=== PATIENT | female | born 1950 | race Asian ===

== ENCOUNTER 2018-11-27 17:42 | Inpatient (IN) | payer MEDICARE, MEDICAID ==
[~2018-11-27] VITALS: Ht 154.9 cm; Wt 58.5 kg
[2018-11-27 17:56] VITALS: Ht 154.9 cm; Wt 58.5 kg
[2018-11-27 18:33] LABS: BASOPHIL % 1.4 % (0-2); PLATELET COUNT 255 x10^3mcL (130-400); RED CELL DISTRIBUTION WIDTH 13.2 % (11.5-14.5)
[2018-11-27 18:53] LABS: CALCIUM 8.8 mg/dL (8.5-10.1); CARBON DIOXIDE 24.3 mmol/L (21-32); CHLORIDE SERUM 100 mmol/L (98-107); CREATININE SERUM 0.5 mg/dL (0.6-1.0); GFR1 > 60 mL/min; GLUCOSE SERUM 114 mg/dL (74-106); POTASSIUM SERUM 3.8 mmol/L (3.5-5.1); SODIUM SERUM 134 mmol/L (136-145)
[2018-11-27 18:57] LABS: ALBUMIN 3.4 g/dL (3.4-5.0); ALKALINE PHOSPHATASE 56 U/L (46-116); ALT/SGPT 20 U/L (14-59); AMYLASE 58 U/L (25-115); AST/SGOT 17 U/L (15-37); LIPASE 157 IU/L (73-393)
[2018-11-27 20:56] LABS: MAGNESIUM 2.2 mg/dL (1.8-2.4); PHOSPHOROUS 2.9 mg/dL (2.5-4.9)
[2018-11-27 22:18] VITALS: BP 102/56
[2018-11-28 02:40] LABS: microscopic required? NO
[2018-11-28 02:57] LABS: UA SPECIFIC GRAVITY <=1.005 (1.005-1.035); urine erythrocyte NEGATIVE (NEGATIVE)
[2018-11-28 05:54] VITALS: BP 103/55
[2018-11-28 06:52] LABS: CALCIUM 7.8 mg/dL (8.5-10.1); CARBON DIOXIDE 22.9 mmol/L (21-32); CHLORIDE SERUM 106 mmol/L (98-107); CREATININE SERUM 0.5 mg/dL (0.6-1.0); GFR1 > 60 mL/min; GLUCOSE SERUM 91 mg/dL (74-106); PHOSPHOROUS 3.1 mg/dL (2.5-4.9); POTASSIUM SERUM 3.4 mmol/L (3.5-5.1); SODIUM SERUM 130 mmol/L (136-145)
[2018-11-28 08:11] LABS: BASOPHIL % 0.6 % (0-2); PLATELET COUNT 197 x10^3mcL (130-400)
[2018-11-28 09:35] VITALS: BP 111/60
[2018-11-28 16:04] LABS: BASOPHIL % 0.6 % (0-2); PLATELET COUNT 223 x10^3mcL (130-400); RED CELL DISTRIBUTION WIDTH 12.8 % (11.5-14.5)
[2018-11-28 16:10] VITALS: BP 111/62
[2018-11-28 16:49] VITALS: BP 106/54
[2018-11-28 20:00] VITALS: BP 125/70
[2018-11-28 20:55] VITALS: BP 112/68
[2018-11-29 05:34] VITALS: BP 101/55
[2018-11-29 06:14] LABS: BASOPHIL % 0.5 % (0-2); PLATELET COUNT 220 x10^3mcL (130-400); RED CELL DISTRIBUTION WIDTH 12.9 % (11.5-14.5)
[2018-11-29 06:36] LABS: CALCIUM 8.6 mg/dL (8.5-10.1); CARBON DIOXIDE 23.7 mmol/L (21-32); CHLORIDE SERUM 110 mmol/L (98-107); CREATININE SERUM 0.4 mg/dL (0.6-1.0); GFR1 > 60 mL/min; GLUCOSE SERUM 96 mg/dL (74-106); MAGNESIUM 2.2 mg/dL (1.8-2.4); PHOSPHOROUS 3.4 mg/dL (2.5-4.9); POTASSIUM SERUM 4.6 mmol/L (3.5-5.1); SODIUM SERUM 143 mmol/L (136-145)
[2018-11-29 09:40] VITALS: BP 100/51
[2018-11-29 16:07] VITALS: BP 115/70
[2018-11-29] MEDS ORDERED: COLACE100 MG PO (16:30)
[2018-11-29 16:35] VITALS: BP 115/70
== END 2018-11-29 17:25 | disposition home or self-care (01) | DRG 989 ==
LOC: ED 17:42 → MU 20:27
PROVIDERS: Emergency Medicine; General Practice; Surgery; ADMIT Internal Medicine
PROC: 06LY0CC Occlusion of Hemorrhoidal Plexus with Extraluminal Device, Open Approach (ICD-10-PCS; principal; 2018-11-28 18:00)
DX: K91.840 Postprocedural hemorrhage of a digestive system organ or structure following a digestive system procedure (principal); R39.14 Feeling of incomplete bladder emptying; Z68.24 Body mass index [BMI] 24.0-24.9, adult; Z85.72 Personal history of non-Hodgkin lymphomas; Y83.8 Other surgical procedures as the cause of abnormal reaction of the patient, or of later complication, without mention of misadventure at the time of the procedure; Y92.009 Unspecified place in unspecified non-institutional (private) residence as the place of occurrence of the external cause
CPT/HCPCS: J0690; J2250; J2405; J3010; J3490; J7030; J7120; Q0092

== ENCOUNTER 2018-11-30 18:18 | Inpatient (IN) | payer MEDICAID, MEDICARE ==
[~2018-11-30] VITALS: Ht 154.9 cm; Wt 53.8 kg
[~2018-11-30 18:18] MED LIST: COLACE100 MG PO
--- NOTE | 2018-11-30 18:34 | NUR ---
GI BLEEDING STARTE THIS AM. PT HAD RECENT HEMM REMOVAL AND THEN MORE RECENT CAUTERIZATION OF BLEEDING ON TUESDAY WITH ADMISSION. MODERATE AMOUNT OF BRIGHT RED BLOOD PRESENT. PT HAS 10/10 RECTAL PAIN. PT ARRIVES ALERT AND ORIENTED WITH VSS BUT PALE IN COLOR AND WEAK. CONNECTED TO LICENSED EMBALMER SUPERVISOR AND AWAITING MD WARNER
--- NOTE | 2018-11-30 18:45 | NUR ---
DR KAPADIA AT BEDSIDE FOR EVAL
--- NOTE | 2018-11-30 19:02 | NUR ---
CALLED PHARMACY AND THEY WILL MIX TXA INFUSION AND BRING OVER TO ED
--- NOTE | 2018-11-30 19:15 | NUR ---
PT GIVEN FENTENYL WITH VSS. ONCE MEDICATION GIVEN PT BECAME GROGGY AND BP RECHECKED AND 106/66. PT AROUSABLE TO LIGHT SHAKING. TXA BROUGHT BY PHARMACY STARTED
--- NOTE | 2018-11-30 19:17 | NUR ---
REPORT GIVEN TO SHEEBA RAGLAND
[2018-11-30 19:18] LABS: BASOPHIL % 1.2 % (0-2); PLATELET COUNT 259 x10^3mcL (130-400); RED CELL DISTRIBUTION WIDTH 13.3 % (11.5-14.5)
[2018-11-30 19:22] LABS: CALCIUM 8.4 mg/dL (8.5-10.1); CARBON DIOXIDE 28.5 mmol/L (21-32); CHLORIDE SERUM 107 mmol/L (98-107); CREATININE SERUM 0.6 mg/dL (0.6-1.0); GFR1 > 60 mL/min; GLUCOSE SERUM 133 mg/dL (74-106); POTASSIUM SERUM 3.9 mmol/L (3.5-5.1); SODIUM SERUM 141 mmol/L (136-145)
[2018-11-30 19:26] LABS: ALKALINE PHOSPHATASE 50 U/L (46-116); ALT/SGPT 15 U/L (14-59); AST/SGOT 12 U/L (15-37); BILIRUBIN TOTAL 0.13 mg/dL (0.20-1.00)
[2018-11-30 19:27] LABS: ALBUMIN 2.8 g/dL (3.4-5.0); TOTAL PROTEIN, SERUM 5.9 g/dL (6.4-8.2)
--- NOTE | 2018-11-30 19:44 | NUR ---
PATIENT MEDICATED WITH ZOFRAN, FAMILY COMPLAINT PATIENT HAS HAUSEA.
--- NOTE | 2018-11-30 20:42 | NUR ---
FAMILY REPORTS BLEEDING. NO ACTIV BLEEDING SEEN. PAD WAS BLOODY WITH CLOTS AND LINEN WAS SOAKED WITH PINK FLUID. LINEN CHANGED. PATIENT REQUEST CATH, REPORTS SHE HAS RETENTION WITH LYING DOWN. SAME INSERTED PER MD ORDER. 200 ML URINE DRAINE. CLEAR URINE.
--- NOTE | 2018-11-30 20:51 | NUR ---
REPORT WAS GIVEN TO CEE. PATIENT TRANSPORTED TO ROOM 207B.
[2018-11-30 20:56] LABS: BASOPHIL % 0.7 % (0-2); RED CELL DISTRIBUTION WIDTH 13.2 % (11.5-14.5)
--- NOTE | 2018-11-30 21:00 | NUR ---
RECEIVED PT FROM ED VIA GUERNEY, CAME IN DUE TO RECTAL BLEED 1 HOUR AFTER BM. AAOX4. DENIES HEADACHE/DIZZINESS. ABLE TO FOLLOW COMMANDS. NO SOB NOTED, LUNG SOUNDS CTA. ON 2LPM/NC, O2 SAT=99%. DENIES CHEST PAIN/PRESSURE, SR ON THE MONITOR. PALE. DENIES ABDOMINAL PAIN/NAUSEA/VOMITING. ABDOMEN IS SOFT. NO ACTIVE RECTAL BLEED NOTED AT THIS TIME BUT NOTED BLOOD WITHOUT ANY CLOTS ON HER KERLINE-PAD. W/ MACEDONIAN 16 MATHIS CATHETER DRAINING W/ YELLOW COLORED URINE. SIDE RAILS UPX2. CALL LIGHT ON REACH. FAMILY AT BEDSIDE. ENDORSED TO PRIMARY NURSE CEE AT BEDSIDE FOR CONTINUITY OF CARE
[2018-11-30 21:14] VITALS: BP 99/63
[2018-11-30 21:23] VITALS: Ht 154.9 cm; Wt 53.8 kg
[2018-11-30 21:38] LABS: PLATELET COUNT 173 x10^3mcL (130-400)
[2018-12-01] VITALS (7 sets, daily range): BP systolic 92–110; BP diastolic 51–63
[2018-12-01 01:41] LABS: microscopic required? NO
[2018-12-01 01:58] LABS: urine erythrocyte NEGATIVE (NEGATIVE)
[2018-12-01 02:06] LABS: BASOPHIL % 0.9 % (0-2); PLATELET COUNT 223 x10^3mcL (130-400); RED CELL DISTRIBUTION WIDTH 13.5 % (11.5-14.5)
--- NOTE | 2018-12-01 02:19 | NUR ---
DR FERNANDES PAGED IN REGARDS OF H&H 7.0/20
--- NOTE | 2018-12-01 02:30 | NUR ---
ROUNDS MADE. PT RESTING, BREATHING EVEN AND UNLABORED ON NC WITH NO SOB NOTED. NO SIGNS OF ACUTE DISTRESS NOTED. CALL BUTTON WITHIN REACH. SAFETY PRECAUTIONS IN PLACE. FAMILY MEMBER AT BEDSIDE. WILL CONTINUE TO MONITOR.
--- NOTE | 2018-12-01 03:55 | NUR ---
DR FERNANDES MADE AWARE OF H&H RESULTS, NO NEW ORDERS AT THIS TIME.
--- NOTE | 2018-12-01 05:21 | NUR ---
PT SLEPT MOST OF THE NIGHT WITH NO DISTRESS NOTED. PT RESTING, DENIES ANY PAIN. BREATHING EVEN AND UNLABORED ON NC 2L/MIN NO SOB NOTED. IV PATENT, SL WITH NO SIGNS OF INFILTRATION NOTED. NO SIGNS OF ACUTE DISTRESS. F/C IN PLACE DRAINING YELLOW URINE. CALL BUTTON WITHIN REACH. SAFETY PRECAUTIONS IN PLACE. FAMILY AT BEDSIDE. WILL CONTINUE TO MONITOR AND ENDORSE CARE TO DAY SHIFT RN.
[2018-12-01 07:17] LABS: CALCIUM 7.7 mg/dL (8.5-10.1); CARBON DIOXIDE 31.7 mmol/L (21-32); CHLORIDE SERUM 109 mmol/L (98-107); CREATININE SERUM 0.5 mg/dL (0.6-1.0); GFR1 > 60 mL/min; GLUCOSE SERUM 104 mg/dL (74-106); POTASSIUM SERUM 4.1 mmol/L (3.5-5.1); SODIUM SERUM 144 mmol/L (136-145)
[2018-12-01 07:20] LABS: BASOPHIL % 0.4 % (0-2); PLATELET COUNT 225 x10^3mcL (130-400); RED CELL DISTRIBUTION WIDTH 13.3 % (11.5-14.5)
--- NOTE | 2018-12-01 07:39 | NUR ---
PT AWAKE DENIES ANY PAIN. NO SIGNS OF DISTRESS NOTED. KERLINE PAD WITH DARK BLOOD NOTED. NC IN PLACE WITH NO SOB NOTED. IV PATENT, SL NO SIGNS OF INFILTRATION NOTED. CALL BUTTON WITHIN REACH. SAFETY PRECAUTIONS IN PLACE. SON AT BEDSIDE. ENDORSED CARE TO DAY SHIFT RN, ALL QUESTIONS ADDRESSED.
--- NOTE | 2018-12-01 08:00 | NUR ---
RECEIVED PATIENT ALERT/ORIENTED X4. GENERAL WEAKNESS. ANEMIC PALE. HANDS COLD. TELE#8; SR; HR = 78. NO RESP DISTRESS ON RA. O2 SAT 98%. ABD FLAT/SOFT. RECTAL BLEEDING ACTIVE. SMALL TO MODERATE DARK RED BLLOD. NOMIXED WITH STOOL. MATHIS CATHETER PATENT WITH YELLOWISH UOP. IV HL'D TO LFA WITH 19G NEEDLE. NPO FOR SURGERY AT 0930. DENIED PAIN. B/P = 92/54; [place] POSITION. SON AT BED SIDE. CALL LIGHT IN REACH.
--- NOTE | 2018-12-01 09:08 | NUR ---
DR. LYN CAME TO SEE PATIENT AND EXPLAINED PROCEDURE. SURGICAL CONSENT SIGNED. PATIENT WENT TO OR NOW.
--- NOTE | 2018-12-01 11:46 | NUR ---
RECEIVED PATIENT FROM OR RECOVERY ROOM. PATIENT DROWSY, AROUSABLE. V/S =97.4-79-16-102/55. O2 SAT 100% ON 2L VIA N/C. DENIED PAIN NOW. NO RECTAL BLEEDING SEEN. SKIN PALE. NPO FOR GI CONSULTATION PER ORDER. IVHL'D TO LFA. CALL LIGHT IN REACH.
--- NOTE | 2018-12-01 13:38 | NUR ---
DR. Keith BASS CAME TO SEE PATIENT. CONSENT OF EGD AND COLONOSCOPY SIGHED. PATIENT WENT TO GI LAB NOW.
--- NOTE | 2018-12-01 16:00 | NUR ---
RECEIVED PATEINT FROM GI LAB. V/S = 98.2-83-16-98/49, O2 SAT 100%ON 2L VIA N/C. DENIED PAIN. NO RECTAL BLEEDING NOW. CALL LIGHT IN REACH.
--- NOTE | 2018-12-01 16:25 | NUR ---
1ST UNIT BLOOD TRANSFUSION STARTED. NO ADVERSE REACTION NOW.
--- NOTE | 2018-12-01 19:45 | NUR ---
1 ST UNIT OF PRBC TRANSFUSION DONE. NO ADVERSED REACTION. V/S= 98.6-95-16-98/52; O2 SAT 96% ON 2L VIA N/C. RECTAL BLEEDING WAS SUBSIDING. ON CLEAR LIQUID DIET, TOLERATED. MATHIS UOP 850CC COLLECTED. ENDORSED CARE TO [facility] NURSE.
--- NOTE | 2018-12-01 20:40 | NUR ---
Awake and verbally responsive. No respiratory distress noted on room air. Denies pain. Denies n/v. 1 Unit prbc started. Will cont.to monitor. No active bleeding noted. Call light within reach.
[2018-12-02] VITALS (10 sets, daily range): BP systolic 107–137; BP diastolic 59–78
--- NOTE | 2018-12-02 03:37 | NUR ---
Afebrile. Had 1 unit prbc and 1 unit FFP. No adverse reaction noted. Denies pain. Denies n/v. No active bleeding noted. In no apparent distress. Family member at the bedside.
--- NOTE | 2018-12-02 07:10 | NUR ---
RECEIVED REPORT FROM JAVAD RAGLAND. PT RESTING COMFORTABLY IN BED WITH DAUGHTER AT BEDSIDE. IV TO LFA IS INFILTRATED. FLUIDS STOPPED. JAVAD TO ATTEMPT NEW INSERTION. TELE # [address]. PT DENIES CHEST PAIN. PT ON ROOM AIR. NO C/O SOB AND NO DISTRESS NOTED. ALL QUESTIONS AND CONCERNS ADDRESSED.
[2018-12-02 07:22] LABS: CALCIUM 8.4 mg/dL (8.5-10.1); CARBON DIOXIDE 28.9 mmol/L (21-32); CHLORIDE SERUM 108 mmol/L (98-107); CREATININE SERUM 0.6 mg/dL (0.6-1.0); GFR1 > 60 mL/min; GLUCOSE SERUM 106 mg/dL (74-106); MAGNESIUM 2.1 mg/dL (1.8-2.4); PLATELET COUNT 217 x10^3mcL (130-400); POTASSIUM SERUM 3.6 mmol/L (3.5-5.1); RED CELL DISTRIBUTION WIDTH 13.7 % (11.5-14.5); SODIUM SERUM 142 mmol/L (136-145)
--- NOTE | 2018-12-02 10:03 | NUR ---
NEW IV INSERTED TO LFA 20G. FLUIDS RESUMED. PO MEDICATIONS ADMINISTERED. CALLED PHARMACY FOR 0900 IV FERRLICIT. SPOKE WITH JOSHUA. MEDICATION TO BE DELIVERED.
--- NOTE | 2018-12-02 11:06 | NUR ---
SPOKE WITH DR HENRY TO REQUEST PRE TRANSFUSION TYLENOL AND BENADRYL FOR FFP INFUSION.
--- NOTE | 2018-12-02 12:25 | NUR ---
FFP INFUSION STARTED VERIFICATION BY MYSELF AND DAMIAN RAGLAND. VITALS TAKEN AND STABLE (SEE DOCUMENTATION) WILL REMAIN WITH PATIENT TO MONITOR.
--- NOTE | 2018-12-02 14:38 | NUR ---
FFP INFUSION COMPLETE. POST VITALS TAKEN (SEE DOCUMENTATION). PT RESTING COMFORTSLY IN BED. ALL NEEDS MET.
--- NOTE | 2018-12-02 17:39 | NUR ---
CALLED DR HENRY TO REQUEST MATHIS REMOVAL PER PATIENT REQUEST. NOTIFIED DR HENRY OF MANY LOOSE BMS WITH NO BLOOD NOTED. DR HENRY OK TO DC MATHIS AWAITING ORDERS.
--- NOTE | 2018-12-02 18:23 | NUR ---
IN TO SEE PATIENT AND DISCUSS BLADDER TRAINING BEFORE MATHIS REMOVAL. MATHIS EMPTIED OF 1350 CLEAR YELLOW URINE AND CLAMPED. PT TO NOTIFY WHEN BLADDER FEELS FULL AND SHE HAS THE URGE TO URINATE.
--- NOTE | 2018-12-02 18:32 | NUR ---
RECEIVED CALL FROM DR HUITRON FOR UPDATE ON PATIENT. INFORMED THAT PT HAD SEVERAL BM ALL LOOSE WITH NO BLOOD NOTED. DR HUITRON ORDERED REGULAR DIET TOMORROW AND TO CANCEL DULCOLAX AND MINERAL OIL. ORDERED TO KEEP AMITIZA AND LACTULOSE.
--- NOTE | 2018-12-02 18:50 | NUR ---
PT REPORTED FEELING URGE TO URINATE. MATHIS UNCLAMPED AND 200 ML CLEAR YELLOW URINE DRAINED INTO BAG. MATHIS RECLAMPED.
--- NOTE | 2018-12-02 19:34 | NUR ---
PT RESTING COMFORTABLY IN BED WITH FAMILY AT BEDSIDE. ALL NEEDS MET. MATHIS IN PLACE IS CLAMPED FOR BLADDER TRAINING. IV TO LFA IS PATENT AND INFUSING D5NS @ 80 ML/HR. NO REDNESS OR PAIN. TELE # [address] PT DENIES CHEST PAIN. PT ON ROOM AIR. NO C/O SOB AND NO DISTRESS NOTED. WILL ENDORSE TO DC MATHIS TO YAQUELIN GARIBAY.
--- NOTE | 2018-12-02 19:50 | NUR ---
RECEIVED REPORT FROM DAY SHIFT RN. PT RESTING IN BED. AA&O X4. NO SOB ON ROOM AIR. NO C/O PAIN. NO DISTRESS NOTED. IV TO LFA, INTACT. MATHIS CATHETER IN PLACE, CLAMPED FOR BLADDER TRAINING. SAFETY MEASURES IN PLACE. BED IN LOWEST POSITION. SIDE RAILS UP X2. INSTRUCTED PT TO USE THE CALL LIGHT FOR ASSISTANCE. CALL LIGHT WITHIN REACH. AT BEDSIDE.
--- NOTE | 2018-12-02 20:30 | NUR ---
PT REPORTED FEELING THE URGE TO URINATE. MATHIS UNCLAMPED. 200 ML YELLOW URINE OUT. PT REQUESTED TO HAVE THE MATHIS CATHETER REMOVED TOMORROW MORNING. PT STATES "SO SHE DOES NOT HAVE TO WORRY ABOUT GETTING UP OFTEN TONIGHT BECAUSE SHE WANTS TO GET SOME SLEEP". OK TO DC MATHIS IN THE MORNING PER DR POWELL.
[2018-12-03 05:49] VITALS: BP 112/66
[2018-12-03 06:39] LABS: BASOPHIL % 0.6 % (0-2); PLATELET COUNT 240 x10^3mcL (130-400); RED CELL DISTRIBUTION WIDTH 14.1 % (11.5-14.5)
--- NOTE | 2018-12-03 06:50 | NUR ---
PT SLEPT IN LONG INTERVALS THROUGHOUT SHIFT. NO SOB ON ROOM AIR. NO C/O PAIN. MATHIS CATHETER REMOVED. MATHIS CATHETER TIP INTACT. NO DISTRESS NOTED. NO ACTIVE RECTAL BLEEDING NOTED. SAFETY MEASURES MAINTAINED. ALL NEEDS ATTENDED TO. WILL ENDORSE CONTINUITY OF CARE TO ONCOMING RN. CALL LIGHT WITHIN REACH. SON AT BEDSIDE.
[2018-12-03 07:00] LABS: CALCIUM 8.9 mg/dL (8.5-10.1); CARBON DIOXIDE 26.5 mmol/L (21-32); CHLORIDE SERUM 107 mmol/L (98-107); CREATININE SERUM 0.5 mg/dL (0.6-1.0); GFR1 > 60 mL/min; GLUCOSE SERUM 95 mg/dL (74-106); PHOSPHOROUS 3.6 mg/dL (2.5-4.9); POTASSIUM SERUM 3.1 mmol/L (3.5-5.1); SODIUM SERUM 143 mmol/L (136-145)
--- NOTE | 2018-12-03 07:20 | NUR ---
RECEIVED PT IN BED. ASSESSED AND DOCUMENTED. DENIES ANY PAIN. STABLE. SAFTEY PRECAUTIONS ARE IN PLACE. WILL MONITOR.
--- NOTE | 2018-12-03 09:00 | NUR ---
CALLED AND ASKED ABOUT PT, AWARE ABOUT PT SOME LOOSE STOOL YESTERDAY AND 1 SMALL FORMED BM TODAY AM. HE SAID HOLD LACTULOSE AND AMITIZIA FOR AM DOSE. INFORMED AUDIO VISUAL COORDINATOR JANE SHE SAID HOLD AM DOSES BUT SHE CAN HAVE HER NIGHT DOSE.
[2018-12-03 09:30] VITALS: BP 103/62
--- NOTE | 2018-12-03 10:00 | NUR ---
PT SAID SHE HAS MILD LLQ PAIN,2/10. OFFERED PAIN MED BUT PT REFUSED AND SAID SHE JUST WANT TO TELL THE DOCTOR. INFORMED CORPORATE ASSOCIATE ATTORNEY GUSTAVO ABOUT THAT AND SHE WENT IN THE ROOM, SPOKE WITH PT AND ASSESSED PT. NO NEW ORDER RECEIVED THIS TIME.
--- NOTE | 2018-12-03 10:45 | NUR ---
PT RESTING IN BED COMFORTABLY. FAMILY AT BEDSIDE. STABLE. DENEIS ANY PAIN THIS TIME.
[2018-12-03 12:49] VITALS: BP 107/64
--- NOTE | 2018-12-03 14:00 | NUR ---
PT IS STABLE. DENIES ANY PAIN. FAMILY AT BEDSIDE.
[2018-12-03 17:35] VITALS: BP 112/65
--- NOTE | 2018-12-03 19:10 | NUR ---
PT RESTING IN BED COMFPRTABLY. DENIES PAIN. STABLE. GAVE REPORT TO SMALL BOAT ENGINEER NURSE.
--- NOTE | 2018-12-03 19:35 | NUR ---
RECEIVED PT RESTING IN BED, DAUGHTER AT BEDSIDE. AOX4, DENIES ELIZABETH/DIZZINESS. TELE #8, SR. DENIES CP. PULSES PALPABLE BIALT, DENIES NUMBNESS/TINGLING IN FEET. RESP EVEN AND UNLABORED ON RA, DENIES SOB. ABD SOFT, FLAT, REPORTS LLQ PAIN (INTERMITTENT, TOLERABLE AT THIS TIME). PT REPORTING LOOSE STOOL, PT ON LACTULOSE TO ENSURE PT HAS SOFT STOOLS W/O RISK OF STRAINING D/T S/P HEMORRHOIDECTOMY. PT DENIES ACTIVE BLEEDING AT THIS TIME. PT VOIDS W/O DYSURIA. PT AMBULATORY W/ SBA FOR SAFETY. SKIN INTACT. IV SITE TO LFA, D5NS @ 80ML/HR. NO REDNESS, SWELLING OR PAIN NOTED. ALL COMFORT AND SAFETY MEASURES PROVIDED FOR, CALL LIGHT WITHIN REACH, BED IN LOWEST POSITION, WILL CONTINUE TO MONITOR.
[2018-12-03 21:34] VITALS: BP 127/65
--- NOTE | 2018-12-04 05:10 | NUR ---
PT RESTED IN INTERVALS DURING SHIFT, DAUGHTER REMAINING AT BEDSIDE. PT MITCHEL ACTIVE BLEEDING FROM RECTUM. NO BLOOD AFTER WIPING. PT RECEIVED LACTULOSE PO PER ORDER. EDUCATED PT ABOUT FOODS WHICH WILL BE APPROPRIATE TO PREVENT HAVING HARD STOOLS. ENCOURAGED PT TO CHEW HER FOOD THOROUGHLY FOR ATLEAST 15-30 SECS TO ENSURE FOOD IS BROKEN DOWN COMPLETELY. PT VERBALIZING UNDERSTANDING D/T SHE IS FEARFUL OF EATING REG DIET FOOD D/T HAVING TO STRAIN. PT STS SHE FEELS STRONGER AND ABLE TO AMBULATE WELL. IV SITE REMAISN PATENT TO LFA, D5NS @ 80ML/HR, NO REDNESS, SWELLING OR PAIN NOTED. ALL COMFORT AND SAFETY MEASURES PROVIDED FOR, CALL LIGHT WITHIN REACH, BED IN LOWEST POSITION, WILL CONTINUE TO MONITOR.
[2018-12-04 05:15] VITALS: BP 118/68
[2018-12-04 07:25] LABS: BASOPHIL % 0.3 % (0-2); PLATELET COUNT 265 x10^3mcL (130-400); RED CELL DISTRIBUTION WIDTH 13.9 % (11.5-14.5)
[2018-12-04 07:32] LABS: CALCIUM 8.6 mg/dL (8.5-10.1); CARBON DIOXIDE 26.4 mmol/L (21-32); CHLORIDE SERUM 105 mmol/L (98-107); CREATININE SERUM 0.5 mg/dL (0.6-1.0); GFR1 > 60 mL/min; GLUCOSE SERUM 104 mg/dL (74-106); SODIUM SERUM 140 mmol/L (136-145)
--- NOTE | 2018-12-04 07:35 | NUR ---
PT IS AAOX4. RESP EVEN AND UNLABORED. LUNG SOUNDS CTA. PT NOTED WITH SOB UPON EXERTION. TELE [address] READING NSR. ABDOMEN SOFT, NONTENDER, NONDISTENDED. BOWEL SOUNDS ACTIVE. PT HAS LOOSE STOOLS. SKIN CDI. NO EDEMA NOTED. PERIPHERAL PULSES PALPABLE. IV CATH TO LFA WITH FLUIDS RUNNING. PT DENIES PAIN AT THIS TIME. CALL LIGHT WITHIN REACH.
--- NOTE | 2018-12-04 09:27 | NUR ---
DUE MED GIVEN. RESP EVEN AND UNLABORED. PT DENIES PAIN AT THIS TIME. SCDS APPLIED TO PT. FLUIDS ENCOURAGED. CALL LIGHT WITHIN REACH.
[2018-12-04 09:55] VITALS: BP 117/60
--- NOTE | 2018-12-04 12:40 | NUR ---
REPORTED TO GUSTAVO LOGAN NP THAT PT HAS TEMP OF 101.0F. PT HAS C/O FREQUENT URINATION AND STATES SHE HAS NOT BEEN ABLE TO FULLY EMPTY HER BLADDER FOR ONE WEEK. PT'S WBC WNL, THE PT IS NOT ON ABT AT THIS TIME. NO NEW ORDERS AT THIS TIME.
[2018-12-04 12:52] VITALS: BP 115/70
--- NOTE | 2018-12-04 13:30 | NUR ---
PT TEMP 99.4. COOLING MEASURES IN PLACE. RESP EVEN AND UNLABORED. PT RESTING COMFORTABLY. CALL LIGHT WITHIN REACH. FAMILY AT BEDSIDE.
--- NOTE | 2018-12-04 15:18 | NUR ---
PT EDUCATED THAT A UA HAS BEEN ORDER AND PT WILL NEED TO GIVE A URINE SAMPLE. PT VERBALIZED UNDERSTANDING.
[2018-12-04 16:31] VITALS: BP 120/72
[2018-12-04 16:57] LABS: UA SPECIFIC GRAVITY <=1.005 (1.005-1.035); microscopic required? YES; urine erythrocyte 2+ (NEGATIVE)
--- NOTE | 2018-12-04 18:27 | NUR ---
GUSTAVO LOGAN, MERCHANDISE PROCESSOR STATED THAT LEVAQUIN CAN BE STARTED AND NO BLOOD CX IS NEEDED AT THIS TIME. LEVAQUIN HAS BEEN GIVEN. PT DENIES PAIN. CALL LIGHT WITHIN REACH.
--- NOTE | 2018-12-04 18:44 | NUR ---
PT IS AAOX4. RESP EVEN AND UNLABORED. NO DISTRESS NOTED. DENIES PAIN. IVF RUNNING TO [facility], PATENT, SITE. TELE [address] READING NSR. CALL LIGHT WITHIN REACH. FAMILY AT BEDSIDE. WILL ENDORSE ALL CARE TO NOC RN.
[2018-12-04 19:00] VITALS: BP 104/64
--- NOTE | 2018-12-04 19:00 | NUR ---
RECEIVED PT IN BED RESTING WITH FAMILY AT BEDSIDE.NO DISTRESS NOTED.DENIES ANY PAIN AT THIS TIME. IV SITE PATENT AND INTACT.NO RECTAL BLEEDING NOTED.LEVAQUIN INFUSING @ 100ML/HR.BED IN LOWEST POSITION,CALL LIGHT WITHIN REACH.WILL CONTINUE TO MONITOR.
--- NOTE | 2018-12-04 19:21 | NUR ---
SPOKE TO INGRID ARREDONDO AT [facility] AND REPORTED THAT PT WILL NOT BE TRANSFERING THIS DAY.
[2018-12-04 20:42] VITALS: BP 104/64
--- NOTE | 2018-12-04 21:19 | NUR ---
PT REFUSED LACTULOSE.PER PT SHE'LL TAKE THE MORNING DOSE.
--- NOTE | 2018-12-05 04:58 | NUR ---
PT ASLEEP.NO DISTRESS NOTED. NO S/S OF PAIN AT THIS TIME. BED IN LOWEST POSITION,CALL LIGHT WITHIN REACH. WILL CONTINUE TO MONITOR.
[2018-12-05 06:15] VITALS: BP 108/63
[2018-12-05 06:18] LABS: PLATELET COUNT 277 x10^3mcL (130-400); RED CELL DISTRIBUTION WIDTH 14.2 % (11.5-14.5)
[2018-12-05 06:21] LABS: CALCIUM 8.7 mg/dL (8.5-10.1); CARBON DIOXIDE 25.6 mmol/L (21-32); CHLORIDE SERUM 108 mmol/L (98-107); CREATININE SERUM 0.5 mg/dL (0.6-1.0); GFR1 > 60 mL/min; GLUCOSE SERUM 98 mg/dL (74-106); POTASSIUM SERUM 3.9 mmol/L (3.5-5.1); SODIUM SERUM 143 mmol/L (136-145)
[2018-12-05 06:40] LABS: BASOPHIL % 0 % (0-2)
--- NOTE | 2018-12-05 07:10 | NUR ---
REPORT RCD FROM OBIE ANGELA. PATIENT AWAKE, ALERT, NO DISTRESS. AT BEDSIDE. D5NS 80 ML/HR INFUSING TO LFA WITHOUT COMPLICATIONS. BED LOW, CALL LIGHT WITHIN REACH. WILL MONITOR.
--- NOTE | 2018-12-05 07:31 | NUR ---
CARE ENDORSED TO DAY NURSE AMADA.
--- NOTE | 2018-12-05 08:05 | NUR ---
SHIFT ASSESSMENT PERFORMED AND DOCUMENTED. DISCUSSED PATIENT'S HISTORY AT LENGTH WITH THE WHO REPORTS SHE HAD HEMORRHOIDECTOMY 11/22/18 AT [facility] BUT SUBSEQUENTLY HAD RECTAL BLEEDING AND CAME TO OUR E.D. REPORTS DR. HUITRON REPAIRED HEMORRHOID SURGERY SITE AND SHE HAS BEEN DOING WELL SINCE. SHE DENIES CURRENT RECTAL BLEEDING. REPORTS LOOSE BM YESTERDAY. ON LACTULOSE AND AMITIZA FOR BMs. DENIES JJ/VTG. REPORTS SOME INCOMPLETE EMPTYING OF BLADDER AT TIMES BUT NO BURNING WITH URINATION. NO OTHER COMPLAINTS OR NEEDS AT THIS TIME. WILL MONITOR.
[2018-12-05 10:09] VITALS: BP 112/62
--- NOTE | 2018-12-05 12:15 | NUR ---
CALLED TO PATIENT'S ROOM SHE FEELS SHE MAY BE RUNNING A TEMPERATURE. TEMP TAKEN AND 100.2 ORALLY. PATIENT DENIES HEADACHE OR ANY PAIN. SPOKE WITH ENTRY LEVEL MANUFACTURING ENGINEER KARTIK AND INFORMED OF TEMP. STARTED COOLING MEASURES AND WILL MONITOR.
--- NOTE | 2018-12-05 13:05 | NUR ---
RECHECK OF TEMP ORALLY IS 99.0.
[2018-12-05] MEDS ORDERED: COL-RITE100 M2 PO (14:17)
[2018-12-05] MEDS ORDERED: LEVAQUIN750 MG PO (14:17)
[2018-12-05 14:30] VITALS: BP 112/62
--- NOTE | 2018-12-05 15:32 | NUR ---
VERBAL AND WRITTEN DISCHARGE INSTRUCTIONS GIVEN TO THE PATIENT REGARDING DISCHARGE MEDICATIONS, UTI, GI BLEED, OUTPATIENT FOLLOWUP, SIGNS AND SYMPTOMS TO SEEK EMERGENCY MEDICAL ATTENTION. PATIENT AND VERBALIZED UNDERSTANDING OF ALL INSTRUCTIONS. IV TO LFA REMOVED, SITE WITHOUT COMPLICATIONS. PATIENT INSTRUCTED TO USE CALL LIGHT TO COMMUNICATE WHEN READY FOR ESCORT TO DISCHARGE OFFICE. PATIENT DENIES BLEEDING PER RECTUM TODAY. PATIENT IN NO ACUTE DISTRESS.
== END 2018-12-05 15:40 | disposition home or self-care (01) | DRG 810 ==
LOC: ED 18:18 → DU 20:14 → MU 20:14 → DU 21:02 → MU 12-04 16:00
PROVIDERS: Emergency Medicine; Internal Medicine Gastroenterology; Surgery; ADMIT General Practice
PROC: 0DJ08ZZ Inspection of Upper Intestinal Tract, Via Natural or Artificial Opening Endoscopic (ICD-10-PCS; 2018-12-01)
PROC: 0DJD8ZZ Inspection of Lower Intestinal Tract, Via Natural or Artificial Opening Endoscopic (ICD-10-PCS; 2018-12-01)
PROC: 0DJD8ZZ Inspection of Lower Intestinal Tract, Via Natural or Artificial Opening Endoscopic (ICD-10-PCS; principal; 2018-12-01 09:30)
PROC: 0DJD8ZZ Inspection of Lower Intestinal Tract, Via Natural or Artificial Opening Endoscopic (ICD-10-PCS; 2018-12-01 13:00)
DX: K91.840 Postprocedural hemorrhage of a digestive system organ or structure following a digestive system procedure (principal); C85.90 Non-Hodgkin lymphoma, unspecified, unspecified site; E44.1 Mild protein-calorie malnutrition; D62 Acute posthemorrhagic anemia; N39.0 Urinary tract infection, site not specified; Z68.22 Body mass index [BMI] 22.0-22.9, adult; Y84.8 Other medical procedures as the cause of abnormal reaction of the patient, or of later complication, without mention of misadventure at the time of the procedure
CPT/HCPCS: 43235; 45378; J0690; J1170; J1200; J1610; J1956; J2250; J2310; J2405; J2916; J3010; J3490; J7040; J7042; J7050; P9016; P9059; Q0163

== ENCOUNTER 2019-01-16 07:34 | Emergency (ER) | payer MEDICARE, MEDICAID ==
[~2019-01-16] VITALS: Ht 154.9 cm; Wt 51.7 kg
[~2019-01-16 07:34] MED LIST changes: +COL-RITE100 M2 PO; +LEVAQUIN750 MG PO
[2019-01-16 07:35] VITALS: Ht 154.9 cm; Wt 51.7 kg
[2019-01-16 10:18] VITALS: BP 139/70
== END 2019-01-16 10:18 | disposition home or self-care (01) ==
LOC: ED 07:34
DX: K59.00 Constipation, unspecified (principal); Z85.72 Personal history of non-Hodgkin lymphomas
CPT/HCPCS: J1885